=== PATIENT | female | born 1960 | race Hispanic/Latino ===

== ENCOUNTER 2021-09-12 08:07 | Outpatient (CLI) | payer OTHER, SELFPAY ==
--- NOTE | ~2021-09-12 | MM_ITS ---
EXAMINATION: MM screening mik BI w jaylyn HISTORY: Screening TECHNIQUE: Craniocaudal and mediolateral oblique 3-D tomosynthesis images were obtained and synthetic 2-D images were generated. CAD analysis was submitted and interpreted. COMPARISON: No prior mammogram is available for comparison at this institution. BREAST PARENCHYMAL COMPOSITION: There are scattered areas of fibroglandular density. FINDINGS: There is bilateral breast asymmetry with possible architectural distortion in the periareol ar location of both breasts. No discrete mass or suspicious cluster of calcifications. IMPRESSION: 1. Bilateral breast asymmetries/architectural distortion in the periareolar location of both breasts. 2. Additional mammographic views and possible breast ultrasound are recommended. BI-RADS Category 0: Incomplete: Needs additional imaging evaluation. Reviewed, dictated and finalized at location A. BAG ASSEMBLER IMPRESSION: 1. Bilateral breast asymmetries/architectural distortion in the periareolar loc ation of both breasts. 2. Additional mammographic views and possible breast ultrasound are recommended . BI-RADS Category 0: Incomplete: Needs additional imaging evaluation.
== END 2021-09-12 08:08 | disposition home or self-care (01) ==
PROVIDERS: PCP Internal Medicine Gastroenterology; Visit Provider Internal Medicine Gastroenterology
DX: Z12.31 Encounter for screening mammogram for malignant neoplasm of breast (principal); R92.8 Other abnormal and inconclusive findings on diagnostic imaging of breast
CPT/HCPCS: 77063; 77067

== ENCOUNTER 2022-07-17 13:26 | Outpatient (CLI) | payer OTHER, SELFPAY ==
--- NOTE | ~2022-07-17 | DEXA_ITS ---
Bone Density Report Name: TR PATEL I Age: 61 Sex: Female Ethnicity: White Date of : 1960 Indication: postmenopausal; screening for osteoporosis; hysterectomy; Referring Provider: CHIKANOE Study: Bone densitometry was performed. Exam Date: July 17, 2022 Accession number: [id number] Bone Density: Region BMD T-score Z-score Classification AP Spine(L1-L4) 0.759 -2.6 -1.2 Osteoporosis Femoral Neck (Left) 0.802 -0.4 0.8 Normal Total Hip (Left) 0.896 -0.4 0.5 Normal Femoral Neck (Right) 0.819 -0.3 1.0 Normal Total Hip (Right) 0.852 -0.7 0.2 Normal Total Hip Mean 0.874 -0.6 0.4 Normal World Health Organization criteria for BMD impression classify patients as: Normal (T-score at or above -1.0), Osteopenia (T-score between -1.0 and -2.5), or Osteoporosis (T-score at or below -2.5). 10-year Fracture Risk: FRAX not reported because: Some T-score for Spine Total or Hip Total or Femoral Neck at or below -2.5 Clinical Information Provided by Patient: Has used the following medications: Vitamin D, Calcium Has the following medical conditions: Hysterectomy Patient maximum height was 61.75 Menopause Age: 55 No regular weight bearing exercise Drinks caffeinated beverages Onset of menses at age 16 Number of children 3 Impression: The patient has osteoporosis, based on the Total Spine T-score. Discussion: INCREASED RISK OF FRACTURE. BONE DENSITY IS UNDESIRABLY LOW AT ONE OR MORE SKELETAL SITES, CONSISTENT WITH POSTMENOPAUSAL OSTEOPOROSIS. This patient's lowest T-score meets the World Health Organization's (WHO) criteria for osteoporosis at one or more sites (T-score -2.5 or below). In untreated patients, the risk of osteoporotic fracture increases approximately two-fold for each 1.0 SD decrease in T-score. Low bone density is not the only risk factor for fracture; also consider factors such as patient's age, frailty or poor health, risk of falling, risk of injury, previous osteoporotic fracture, family history of osteoporosis, cigarette smoking, low body weight, etc. Not everyone with low bone mineral density has osteoporosis; osteomalacia and other metabolic bone disorders should also be considered. Patients who have osteoporosis should be evaluated for specific diseases and conditions (secondary causes) that may cause or contribute to bone loss. The [place] Association of Clinical Endocrinologists (AACE) and National Osteoporosis Foundation (NOF) recommend pharmacologic intervention for all postmenopausal women whose T-score is in this range. The patient should follow a healthful lifestyle (good nutrition with adequate calcium and vitamin D, and appropriate weight-bearing exercise). Follow-Up: Consider a repeat BMD and Vertebral Fracture Assessment (VFA) exam in 2 years or soon
== END 2022-07-17 13:27 | disposition home or self-care (01) ==
LOC: ANHIMG 13:40
PROVIDERS: PCP Internal Medicine Gastroenterology; Visit Provider Internal Medicine Gastroenterology
DX: Z78.0 Asymptomatic menopausal state (principal); M81.0 Age-related osteoporosis without current pathological fracture
CPT/HCPCS: 77080

== ENCOUNTER 2023-10-15 18:05 | Emergency (ER) | payer SELFPAY ==
--- NOTE | ~2023-10-15 | XR_ITS ---
EXAMINATION: XR ankle LT min 3V DATE: 10/15/2023 18:50 INDICATION: Left ankle pain. TECHNIQUE: 4 views of left ankle were obtained. COMPARISON: Left ankle radiographs 12/06/15 FINDINGS: Bone alignment is normal. No fracture. Joint spaces are normal. There is ankle soft tissue swelling. IMPRESSION: 1. No fracture. Reviewed, dictated and finalized at location E. AND PRINT MACHINE OPERATOR IMPRESSION: 1. No fracture.
--- NOTE | ~2023-10-15 | US_ITS ---
EXAMINATION: US venous doppler [facility] DATE: 10/15/2023 19:40 INDICATION: Left lower limb pain and swelling. TECHNIQUE: Grayscale ultrasound images without and with compression and Doppler ultrasound images of the left lower extremity veins were obtained. COMPARISON: None. FINDINGS: The visualized portions of left common femoral vein, profunda (deep) femoral vein, femoral vein, popl iteal vein, peroneal veins, posterior tibial veins, and greater saphenous vein outflow are patent. IMPRESSION: 1. No deep venous thrombosis. Reviewed, dictated and finalized at location E. INSERTER
--- NOTE | ~2023-10-15 | XR_ITS ---
EXAMINATION: XR knee LT 3V DATE: 10/15/2023 18:50 INDICATION: Left knee pain. TECHNIQUE: 3 views of left knee were obtained. COMPARISON: None. FINDINGS: Bone alignment is normal. No fracture. There is mild tricompartmental osteoarthritis. No kn ee joint effusion. IMPRESSION: 1. Mild left knee osteoarthritis. Reviewed, dictated and finalized at location E. UCTION SUPERVISOR OFF SHIFT
[2023-10-15 18:18] VITALS: BP 141/56; PULSE 88; RESP 17; TEMP 36.4; O2SAT 100
--- NOTE | 2023-10-15 18:25 | ED.GENADULT ---
HPI - General Adult General Chief complaint: Extremity Problem,Nontraumatic <Luther Thomas PA-C - Last Filed: 10/15/23 18:26> Stated complaint: knee pain <Luther Thomas PA-C - Last Filed: 10/15/23 18:26> Time Seen by Provider: 10/15/23 18:29 <Luther Thomas PA-C - Last Filed: 10/15/23 18:26> Focused HPI: This is a 62-year-old female who presents to the ED with chief complaint of left knee and left ankle pain for the past 6 months. Reports today it was a lot worse. 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 She was scheduled for head doctor's appointment in a couple of weeks. She has been taking ibuprofen 200 mg daily. Denies any injury. Denies any history of blood clot or significant swelling. GENERAL: Well-appearing, well-nourished, and in no acute distress. HEAD: Normocephalic, atraumatic. CHEST: Clear to auscultation. No respiratory distress. HEART: Regular rate and rhythm. NEURO: Alert and oriented x3. Patient screened in triage and initial orders placed. Additional care and disposition to be based upon diagnostic testing and treatment. <Luther Thomas PA-C - Last Filed: 10/15/23 18:26> Source: patient <Fernanda Astudillo MD - Last Filed: 10/15/23 22:51> Mode of arrival: ambulatory <Fernanda Astudillo MD - Last Filed: 10/15/23 22:51> Limitations: language barrier (daughter serves as crime specialist ) <Fernanda Astudillo MD - Last Filed: 10/15/23 22:51> History of Present Illness HPI narrative: This is a 62-year-old female who presents with left knee pain for the past 2-6 months but particularly worse over the past 2 weeks. She has also had swelling of her left ankle intermittently and her midfoot. She does note a popping sensation. No shortness of breath. No paresthesias. 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 She fell in the house 6 months ago but did not seek medical care at that time; no interval trauma. She will note taht sometimes the swelling in her foot is significant enough that it is difficult to put her foot into. <Fernanda Astudillo MD - Last Filed: 10/15/23 22:51> Related Data Allergies/adverse reactions: Allergies Allergy/AdvReac Type Severity Reaction Status Date / Time No Known Allergies Allergy Verified 10/15/23 18:06 <Luther Thomas PA-C - Last Filed: 10/15/23 18:26> [facility] Past Medical History Medical History: Medical History (Updated 10/15/23 @ 20:54 by Fernanda Astudillo MD) Diabetes mellitus <Luther Thomas PA-C - Last Filed: 10/15/23 18:26> Social History Social History: Social History (Updated 10/15/23 @ 21:29 by Fernanda Astudillo MD) Social History: Has a daughter Occupation/Education: occupation Additional occupation/education comments: 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 HEAD: Normocephalic, atraumatic. EYES: Non injected, non icteric ENT: Nares clear, no rhinorrhea or epistaxis. NECK: Supple. CHEST: No respiratory distress. HEART: Regular rate and rhythm. ABDOMEN: Soft, nondistended. EXTREMITIES: Normal range of motion with 5/5 strenght with ankle dorsiflexion/plantarflexion/eversion/inversion, knee flexion/extension. No pedal edema/tibial edema. Mild left knee effusion without overlying skin changes/warmth. No TTP of ankle joint or knee joint. Warm and well perfused. SKIN: Warm, dry, no rash. NEURO: No focal deficits. Alert and oriented x3. Sensation intact to touch throughout leg. PSYCH: Normal mood and affect. <Fernanda Astudillo MD - Last Filed: 10/15/23 22:51> Course Vital Signs Vital signs: Vital Signs Temperature 97.6 F 10/15/23 18:18 Pulse Rate 88 10/15/23 18:18 Respiratory Rate 17 03/08/24 18:18 Blood Pressure 141/56 H 10/15/23 18:18 Pulse Oximetry 100 10/15/23 18:18 Oxygen De
[2023-10-15] MEDS: KETOROLAC 30 MG/ML VIAL (*BKC) IM (18:32)
[2023-10-15] MEDS: ACETAMINOPHEN 500 MG TABLET 1000 MG PO (20:53)
[2023-10-15 21:10] VITALS: BP 136/68; PULSE 82; RESP 20; TEMP 37; O2SAT 99
== END 2023-10-15 21:13 | disposition home or self-care (01) ==
PROVIDERS: Emergency Provider Student in an Organized Health Care Education/Training Program; PCP Internal Medicine Gastroenterology
DX: M25.562 Pain in left knee (principal); G89.29 Other chronic pain; M17.12 Unilateral primary osteoarthritis, left knee; M79.672 Pain in left foot; E11.9 Type 2 diabetes mellitus without complications
CPT/HCPCS: 73562; 73610; 93971; 96372; 99284; A9270; J1885

== ENCOUNTER 2024-06-16 15:05 | Outpatient (CLI) | payer OTHER, SELFPAY ==
--- NOTE | ~2024-06-16 | US_ITS ---
Pelvic ultrasound. Clinical History: Abnormal WOODYARD CRANE OPERATOR exam Technique: Realtime transabdominal and transvaginal scanning of the pelvis was performed. Color flow Doppler and Doppler spectral analysis were performed. Findings: The uterus is anteverted, and measures 6.2 x 2.7 x 4.4 cm. The endometrial stripe has a th ickness of 7 mm. No focal mass is identified. Neither ovary seen. No adnexal mass seen. There is no evidence of free fluid in the cul de sac. Impression: No significant abnormality seen. Neither ovary visualized. Reviewed, dictated and finalized at location . GE CLUB MANAGER Impression: No significant abnormality seen. Neither ovary visualized.
== END 2024-06-16 15:06 | disposition home or self-care (01) ==
PROVIDERS: PCP Internal Medicine Gastroenterology; Visit Provider Emergency Medicine
DX: Z01.411 Encounter for gynecological examination (general) (routine) with abnormal findings (principal)
CPT/HCPCS: 76830; 76856

== ENCOUNTER 2025-06-11 09:39 | Outpatient (CLI) | payer OTHER, SELFPAY ==
--- OUTSIDE RECORDS SUMMARY | 2012-07-18 | XMS_ITS | Encounter Summary ---
Author Organization [facility] Healthcare Address [address] [place] [address] Care Team Providers Care Vp Director Of Creative Strategy Name Role Phone Unavailable Primary Care Provider Unavailabl e Reason for Visit * Diagnostic Imaging (Routine) - Pending Review Specialty Diagnoses / Procedures Referred By Sherwin fitzgerald Referred To Contact Procedures Breast Imaging US Outside Reference Indiana Kaufman, LAURA [address] [address] Phone: tel: fax: Referral ID Status Reason Start Date Expiration Date V isits Requested Visits Authorized [id number] Pending Review 09/07/2024 10/07/2025 1 1 Encounter Details Date Type Department Care Team (Late st Contact Info) Description 07/18/2012 Hospital Encounter [facility] [address] [place] [id number] Social History Tobacco Use Types Packs/Day Years Used Date Smoking Tobacco: Never Smokeless Tobacco: Never Comments Unknown Sex and Gender Information Value Date Recorded Sex Assigned at Not on file Legal Sex Female 12:35 AM PRIVATE CLIENT ADVISOR Gender Identity Not on file Sexual Orientation Not on file documented as of this encounter Plan of Treatment Not on file documented as of this encounter Procedures Procedure Name Priority Date/Time Associated Diagnosis Comments BREAST IMAGING US OUTSIDE REFERENCE Routine 07/18/2012 12:00 AM PRIVATE CLIENT ADVISOR documented in this encounter Results * Breast Imaging US Outside Reference (07/18/2012 12:00 AM PRIVATE CLIENT ADVISOR) Impressions RAD_MAMMO_[facility] - 09/07/2024 8:55 PM PRIVATE CLIENT ADVISOR These images are for Reference purposes only and have not been reviewed by [facility]. There will be no report generated by a [facility]iologist. Narrative RAD_MAMMO_[facility] - 09/07/2024 8:55 PM PRIVATE CLIENT ADVISOR EXAMINATION: Images For Reference Purposes Only us Indiana Kaufman NP IMG MAMMO PROCEDURES Fi nal Result RAD_MAMMO_[facility] documented in this encounter Visit Diagnoses Not on filedocumented in this encounter
--- OUTSIDE RECORDS SUMMARY | 2012-07-18 00:05 | XMS_ITS | Encounter Summary ---
Author Organization [facility] Healthcare Address [address] [place] [address] Care Team Providers Care Chemistry Professor Name Role Phone Unavailable Primary Care Provider Unavailabl e Reason for Visit * Diagnostic Imaging (Routine) - Pending Review Specialty Diagnoses / Procedures Referred By Sherwin fitzgerald Referred To Contact Procedures Breast Imaging Diagnostic Outside Reference Indiana Kaufman, LAURA [address] [address] Phone: tel: fax: Referral ID Status Reason Start Date Expiration Date V isits Requested Visits Authorized [id number] Pending Review 09/07/2024 10/07/2025 1 1 Encounter Details Date Type Department Care Team (Late st Contact Info) Description 07/18/2012 12:05 AM EYE GLASS FRAME POLISHER Hospital En[facility] [address] [place] [id number] Social History Tobacco Use Types Packs/Day Years Used Date Smoking Tobacco: Never Smokeless Tobacco: Never Comments Unknown Sex and Gender Information Value Date Recorded Sex Assigned at Not on file Legal Sex Female 12:35 AM EYE GLASS FRAME POLISHER Gender Identity Not on file Sexual Orientation Not on file documented as of this encounter Plan of Treatment Not on file documented as of this encounter Procedures Procedure Name Priority Date/Time Associated Diagnosis Comments BREAST IMAGING MG DIAGNOSTIC OUTSIDE REFERENCE Routine 07/18/2012 12:05 AM EYE GLASS FRAME POLISHER documented in this encounter Results * Breast Imaging Diagnostic Outside Reference (07/18/2012 12:05 AM EYE GLASS FRAME POLISHER) Impressions RAD_MAMMO_[facility] - 09/07/2024 9:01 PM EYE GLASS FRAME POLISHER These images are for Reference purposes only and have not been reviewed by [facility]. There will be no report generated by a [facility] Radiologist. Narrative RAD_MAMMO_[facility] - 09/07/2024 9:01 PM EYE GLASS FRAME POLISHER EXAMINATION: Images For Reference Purposes Only us Indiana Kaufman NP IMG MAMMO PROCEDURES Fi nal Result RAD_MAMMO[facility] documented in this encounter Visit Diagnoses Not on filedocumented in this encounter
--- OUTSIDE RECORDS SUMMARY | 2013-11-07 23:00 | XMS_ITS | Encounter Summary ---
Author Organization [facility] Healthcare Address [address] [place] [address] Care Team Providers Care Event Services Manager Name Role Phone Unavailable Primary Care Provider Unavailabl e Reason for Visit * Diagnostic Imaging (Routine) - Pending Review Specialty Diagnoses / Procedures Referred By Sherwin fitzgerald Referred To Contact Procedures Breast Imaging Diagnostic Outside Reference Indiana Kaufman, LAURA [address] [address] Phone: tel: fax: Referral ID Status Reason Start Date Expiration Date V isits Requested Visits Authorized [id number] Pending Review 09/07/2024 10/07/2025 1 1 Encounter Details Date Type Department Care Team (Late st Contact Info) Description 11/08/2013 Hospital Encounter [facility] [address] [place] [phone] Social History Tobacco Use Types Packs/Day Years Used Date Smoking Tobacco: Never Smokeless Tobacco: Never Comments Unknown Sex and Gender Information Value Date Recorded Sex Assigned at Not on file Legal Sex Female 12:35 AM PLAYERS ASSISTANT Gender Identity Not on file Sexual Orientation Not on file documented as of this encounter Plan of Treatment Not on file documented as of this encounter Procedures Procedure Name Priority Date/Time Associated Diagnosis Comments BREAST IMAGING MG DIAGNOSTIC OUTSIDE REFERENCE Routine 11/08/2013 12:00 AM CDT documented in this encounter Results * Breast Imaging Diagnostic Outside Reference (11/08/2013 12:00 AM CDT) Impressions RAD_MAMMO_[facility] - 09/07/2024 8:54 PM PLAYERS ASSISTANT These images are for Reference purposes only and have not been reviewed by [facility]. There will be no report generated by a [facility] Radiologist. Narrative RAD_MAMMO_[facility] - 09/07/2024 8:54 PM PLAYERS ASSISTANT EXAMINATION: Images For Reference Purposes Only us Indiana Kaufman NP IMG MAMMO PROCEDURES Fi nal Result RAD_MAMMO[facility] documented in this encounter Visit Diagnoses Not on filedocumented in this encounter
--- OUTSIDE RECORDS SUMMARY | 2015-08-12 | XMS_ITS | Encounter Summary ---
Author Organization [facility] Healthcare Address [address] [place] [address] Care Team Providers Care Assembler Garment Form Name Role Phone Unavailable Primary Care Provider Unavailabl e Reason for Visit * Diagnostic Imaging (Routine) - Pending Review Specialty Diagnoses / Procedures Referred By Sherwin fitzgerald Referred To Contact Procedures Breast Imaging Diagnostic Outside Reference Indiana Kaufman, LAURA [address] [address] Phone: tel: fax: Referral ID Status Reason Start Date Expiration Date V isits Requested Visits Authorized [id number] Pending Review 09/07/2024 10/07/2025 1 1 Encounter Details Date Type Department Care Team (Late st Contact Info) Description 08/12/2015 Hospital Encounter [facility] [address] [place] [phone] Social History Tobacco Use Types Packs/Day Years Used Date Smoking Tobacco: Never Smokeless Tobacco: Never Comments Unknown Sex and Gender Information Value Date Recorded Sex Assigned at Not on file Legal Sex Female 12:35 AM PLANT TECHNICAL SPECIALIST Gender Identity Not on file Sexual Orientation Not on file documented as of this encounter Plan of Treatment Not on file documented as of this encounter Procedures Procedure Name Priority Date/Time Associated Diagnosis Comments BREAST IMAGING MG DIAGNOSTIC OUTSIDE REFERENCE Routine 08/12/2015 12:00 AM PLANT TECHNICAL SPECIALIST documented in this encounter Results * Breast Imaging Diagnostic Outside Reference (08/12/2015 12:00 AM PLANT TECHNICAL SPECIALIST) Impressions RAD_MAMMO_[facility] - 09/07/2024 8:54 PM PLANT TECHNICAL SPECIALIST These images are for Reference purposes only and have not been reviewed by [facility]. There will be no report generated by a [facility] Radiologist. Narrative RAD_MAMMO_[facility] - 09/07/2024 8:54 PM PLANT TECHNICAL SPECIALIST EXAMINATION: Images For Reference Purposes Only us Indiana Kaufman NP IMG MAMMO PROCEDURES Fi nal Result RAD_MAMMO_[facility] documented in this encounter Visit Diagnoses Not on filedocumented in this encounter
--- OUTSIDE RECORDS SUMMARY | 2017-01-29 23:00 | XMS_ITS | Encounter Summary ---
Author Organization [facility] Healthcare Address [address] [place] [address] Care Team Providers Care Senior Treasury Consultant Name Role Phone Unavailable Primary Care Provider Unavailabl e Reason for Visit * Diagnostic Imaging (Routine) - Pending Review Specialty Diagnoses / Procedures Referred By Sherwin fitzgerald Referred To Contact Procedures Breast Imaging Screening Outside Reference Indiana Kaufman, LAURA [address] [address] Phone: tel: fax: Referral ID Status Reason Start Date Expiration Date V isits Requested Visits Authorized [id number] Pending Review 09/07/2024 10/07/2025 1 1 Encounter Details Date Type Department Care Team (Late st Contact Info) Description 01/30/2017 Hospital Encounter [facility] [address] [place] [phone] Social History Tobacco Use Types Packs/Day Years Used Date Smoking Tobacco: Never Smokeless Tobacco: Never Comments Unknown Sex and Gender Information Value Date Recorded Sex Assigned at Not on file Legal Sex Female 12:35 AM BANKER MASON Gender Identity Not on file Sexual Orientation Not on file documented as of this encounter Plan of Treatment Not on file documented as of this encounter Procedures Procedure Name Priority Date/Time Associated Diagnosis Comments BREAST IMAGING MG SCREENING OUTSIDE REFERENCE Routine 01/30/2017 12:00 AM CDT documented in this encounter Results * Breast Imaging Screening Outside Reference (01/30/2017 12:00 AM CDT) Impressions RAD_MAMMO_[facility] - 09/07/2024 8:54 PM BANKER MASON These images are for Reference purposes only and have not been reviewed by [facility]. There will be no report generated by a [facility] Radiologist. Narrative RAD_MAMMO_[facility] - 09/07/2024 8:54 PM BANKER MASON EXAMINATION: Images For Reference Purposes Only us Indiana Kaufman NP IMG MAMMO PROCEDURES Fi nal Result RAD_MAMMO[facility] documented in this encounter Visit Diagnoses Not on filedocumented in this encounter
--- OUTSIDE RECORDS SUMMARY | 2018-07-11 | XMS_ITS | Encounter Summary ---
Author Organization [facility] Healthcare Address [address] [place] [address] Care Team Providers Care Nut Process Helper Name Role Phone Unavailable Primary Care Provider Unavailabl e Reason for Visit * Diagnostic Imaging (Routine) - Pending Review Specialty Diagnoses / Procedures Referred By Sherwin fitzgerald Referred To Contact Procedures Breast Imaging Screening Outside Reference Indiana Kaufman, LAURA [address] [address] Phone: tel: fax: Referral ID Status Reason Start Date Expiration Date V isits Requested Visits Authorized [id number] Pending Review 09/07/2024 10/07/2025 1 1 Encounter Details Date Type Department Care Team (Late st Contact Info) Description 07/11/2018 Hospital Encounter [facility] [address] [place] [phone] Social History Tobacco Use Types Packs/Day Years Used Date Smoking Tobacco: Never Smokeless Tobacco: Never Comments Unknown Sex and Gender Information Value Date Recorded Sex Assigned at Not on file Legal Sex Female 12:35 AM BINDERY SUPERVISOR Gender Identity Not on file Sexual Orientation Not on file documented as of this encounter Plan of Treatment Not on file documented as of this encounter Procedures Procedure Name Priority Date/Time Associated Diagnosis Comments BREAST IMAGING MG SCREENING OUTSIDE REFERENCE Routine 07/11/2018 12:00 AM BINDERY SUPERVISOR documented in this encounter Results * Breast Imaging Screening Outside Reference (07/11/2018 12:00 AM BINDERY SUPERVISOR) Impressions RAD_MAMMO_[facility] - 09/07/2024 8:54 PM BINDERY SUPERVISOR These images are for Reference purposes only and have not been reviewed by [facility]. There will be no report generated by a [facility] Radiologist. Narrative RAD_MAMMO_[facility] - 09/07/2024 8:54 PM BINDERY SUPERVISOR EXAMINATION: Images For Reference Purposes Only us [place] Kaufman NP IMG MAMMO PROCEDURES Fi nal Result RAD_MAMMO[facility] documented in this encounter Visit Diagnoses Not on filedocumented in this encounter
--- NOTE | ~2025-06-11 | XR_ITS ---
EXAMINATION: XR knee LT min 4V, 06/11/2025 10:00 PROGRAM SCHEDULER HISTORY: PAIN AND SWELLING IN LEFT KNEE, NKI COMPARISON: No comparisons available. Findings: No acute fracture or malalignment. Moderate tricompartmental degenerative changes, small effusion Soft tissues unremarkable. Impression: No acute fracture or malalignment. Reviewed, dictated and finalized at location P. RAM SCHEDULER Impression: No acute fracture or malalignment.
--- OUTSIDE RECORDS SUMMARY | 2025-06-11 10:29 | XMS_ITS | Clinical Summary ---
Author Organization [facility] Address [address] [place] [id number] Care Team Providers Care Linux Server Engineer Name Role Phone William Hammond MD Primary Care Provider [phone] Allergies No known active allergies Medications hydrochlorothiazid e 25 MG tablet 11/07/2018 Acti ve metFORMIN 1000 MG tablet 11/07/2018 Active lisinopril 40 MG tablet 11/07/2018 Active Family History Medical History Relation Comments Diabetes Father Hypertension Father Diabetes Mother Hypertension Mother Relation Status Comments Father Mother Social History Tobacco Use Types Packs/Day Years Used Date Smoking Tobacco: Never Smokeless Tobacco: Never Alcohol Use Standard Drinks/Week Comments Yes 0 (1 standard drink = 0.6 oz pur e alcohol) rare Comments No Sex and Gender Information Value Date Recorded Sex Assigned at Not on file Legal Sex Female 5:46 PM CDT Gender Identity Not on file Sexual Orientation Not on file Last Filed Vital Signs Vital Sign Reading Time Taken Comments Blood Pressure 154/94 11/25/2018 8:21 AM CDT Pulse 86 11/25/2018 8:21 AM CDT Temperature 36.3 C (97.4 F) 11/25/2018 8:21 AM CDT Respiratory Rate 20 11/25/2018 8:21 AM CDT Oxygen Saturation 99% 11/25/2018 8:21 AM CDT Inhaled Oxygen Concentration - - Weight 84.8 kg (187 lb) 11/25/2018 8:21 AM CDT Height 157.5 cm (5' 2) 11/25/2018 8:21 AM CDT Body Mass Index 34.2 11/25/2018 8:21 AM CDT Plan of Treatment Health Maintenance Due Date Last Done Comments Cervical Cancer Screening Pa p Smear (Age 30 to 64) Every 3 Years 1962 Colorectal Cancer Screening Colonoscopy (10 Years) 1962 Annual Physical 1965 Hepatitis C 1980 DTaP, Tdap and Td Vaccines ( 1 - Tdap) 1981 Cervical Cancer Screening Hira lindsey with HPV Testing (Age 30 to 64) Every 5 Years 1992 Cervical Cancer Screening with HPV 1992 Mammogram Screening 2002 Pneumococcal Vaccine: 50+ Ye ars (1 of 1 - PCV) 2012 Zoster Vaccines (1 of 2) 2012 COVID-19 Vaccine (1 - 2024-2 6 season) 2025 Influenza Adult (#1) 2025 RSV Immunization or 60+ Years (1 - 1-dose 75+ series) 2037 Hepatitis A Vaccines Aged Out No long er eligible based on patient's age to complete this topic Meningococcal B Vaccine Aged Out No l onger eligible based on patient's age to complete this topic Meningococcal Vaccine Aged Out No delores kathy eligible based on patient's age to complete this topic RSV Immunizations Under 20 Months Aged Out No longer eligible based on patient's age to complete this topic Insurance Care Teams Linux Server Engineer Relationship Specialty Start Date End Date William Hammond MD PCP - General INTERNAL MEDICINE 11/25/18
--- OUTSIDE RECORDS SUMMARY | 2025-06-11 10:29 | XMS_ITS | Clinical Summary ---
Author Organization [address] Address [address] [place] [id number] Care Team Providers Care Faith Doctor Name Role Phone Kamryn Fischer MD Primary Care Provider Allergies No known active allergies Medications lisinopriL (PRINIVIL,ZESTR IL) 40 mg tablet Take 1 tablet (40 mg total) by mouth daily 9 Active lovastatin (MEVACOR) 20 mg tablet Take 1 tablet (20 mg total) by mouth nightly 4 Active hydroCHLOROthia zide (HYDRODIURIL) 25 mg tablet Take 1 tablet (25 mg total) by mouth daily 9 Active meloxicam (MOBIC) 15 mg tablet Take 1 tablet (15 mg total) by mouth daily 5 Active metFORMIN (GLUCOPHAGE) 1,000 mg tablet Take 1 tablet (1,000 mg total) by mouth 2 (two) times a day 9 Active pioglitazone (ACTOS) 15 mg tablet TAKE ONE TABLET BY MOUTH EVERY MORNING FOR DIABETES 4 Active traMADoL (ULTRAM) 50 mg tablet 4 Active naproxen (NAPROSYN) 500 mg tablet Take 1 tablet (500 mg total) by mouth Active FeroSuL 325 mg (65 mg iron) tablet Take 1 tablet (325 mg total) by mouth daily Active glimepiride (AMARYL) 2 mg tablet Take 1 tablet (2 mg total) by mouth daily Active ergocalciferol (VITAMIN D) 50,000 unit capsule TAKE 1 CAPSULE BY MOUTH ONCE A WEEK DIRECTED Active Invokana 100 mg tablet TAKE ONE TABLET BY MOUTH EVERY MORNING FOR DIABETES Active betamethasone (Celestone Soluspan) 6 mg/mL injection Take 3 mL by injection route. 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, bilateral 11/13/2024 Anemia 11/13/2024 Chest pain 11/13/2024 Essential hypertension 11/13/2024 Dyspnea 11/13/2024 Hyperlipidemia 11/13/2024 Menorrhagia 11/13/2024 Obesity 11/13/2024 Peripheral edema 11/13/2024 Pulmonary embolism 11/13/2024 Type 2 diabetes mellitus 11/13/2024 Mass of left breast 06/07/2024 Arthralgia of left ankle 11/02/2023 Osteoporosis 07/30/2022 Low vitamin D level 05/28/2022 Diverticular disease 07/01/2021 Vitamin D deficiency 07/01/2021 Immunizations Immunization Administration Dates Next Due Influenza, Quadrivalent, Split, Intramuscular ,07/19/2015 Influenza, Trivalent, IM (MDV) 08/03/2014 Pneumococcal Polysaccharide PPV23 02/05/2015 Tdap 11/30/2013 Surgical History Surgery Date Site/Laterality Comments COLONOSCOPY Medical History Medical History Date Comments Hypertension Arthritis Family History Medical History Relation Name Comments Diabetes Father Diabetes Mother Hypertension Mother Relation Name Status Comments Father Mother Alive Social History Tobacco Use Types Packs/Day Years Used Date Smoking Tobacco: Never Smokeless Tobacco: Never Tobacco Cessation:Counseling Given: Not Answered Comments Unknown Sex and Gender Information Value Date Recorded Sex Assigned at Not on file Legal Sex Female 12:35 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 Gender Identity Not on file Sexual Orientation Not on file Last Filed Vital Signs Vital Sign Reading Time Taken Comments Blood Pressure 121/75 11/16/2024 9:01 AM CDT Pulse 79 11/16/2024 9:01 AM CDT Temperature 36.9 C (98.5 F) 07/06/2016 7:10 PM HEALTH SCIENCE WRITER Respiratory Rate 18 11/16/2024 9:01 AM CDT Oxygen Saturation 99% 11/16/2024 9:01 AM CDT Inhaled Oxygen Concentration - - Weight 80.3 kg (177 lb) 11/16/2024 9:01 AM CDT Height 157.5 cm (5' 2.01) 11/16/2024 9:01 AM CD T Body Mass Index 32.37 11/16/2024 9:01 AM CDT Plan of Treatment Health Maintenance Due Date Last Done Comments Albumin Creatinine Ratio, Urine 1962 Breast Cancer Screening-Mammogram 1962 Cervical Cancer Screening 1962 Colon Cancer Screening-Colonoscopy 1962 Depression Screening 1962 Hemoglobin A1C 1962 Hepatitis C Screening 1962 eGFR 1962 Dilated Eye Exam 1962 Foot Exam 1962 Hepatitis B Screening 1980 Regular Well Visit/Exam 18-64 1980 Zoster Vaccine (1 of 2) 2012 Pneumococcal vaccine <65 (2 of 2 - PCV) 02/06/2016 02/05/2015 Lipid Panel 03/06/2016 03/06/2015 DTaP/Tdap/Td Vaccine (2 - Td or Tdap) 12/01/2023 Covid-19 Vaccine (3 - season) 2025, 11/11/2020 Influenza Vaccine (#1) 2025 6, 07/19/2015, 08/03/2014 Procedures Procedure Name Priority Date/Time Associated Diagnosis Comments TNI WITH LIPID PANEL Routine 03/06/2015 6:54 PM CDT from Last 3 Months or Most Recently Relevant to Health Maintenance Results * (ABNORMAL) TNI with LIPID PANEL (03/06/2015 6:54 PM CDT) Troponin I < 0.300 0.000 - 0.300 ng/mL 03/06/2015 8:49 PM CDT [employer] HISTORICAL RESULTS Comment: Reference using JANNA Chemiluminescence Negative: Repeat in 4-6 hours as indicated. Triglycerides 106 0 - 199 mg/dL 03/06/2015 8:52 PM CDT [employer] HISTORICAL RESULTS Comment:12 hr pc highly juvenal mmended for Triglyceride Cholesterol 191 0 - 199 mg/dL Comment: Borderline: 200-239 High Risk: >239 HDL Cholesterol 65(H) 40 - 60 mg/dL Comment: Major Risk < 40 mg/dL Moderate Risk 40-60 mg/dL Negative Risk > 60 mg/dL LDL Cholesterol, Calc 105 0 - 130 mg/dL Comment:High Risk > 159 mg/d L Cholesterol/HDL Ratio 2.9 Comment: Cholesterol / HDL Ratio 3.5:1 or less is desirable. Cholesterol / HDL Ratio greater than 5:1 is considered higher risk for developing heart disease. 03/06/2015 6:54 PM CDT 03/06/2015 8:21 PM CDT Narrative [facility] HISTORICAL RESULTS - 03/06/2015 8:52 PM CDT William Harrell MD LAB BLOOD ORDERABLES Final Re sult [facility] HISTORICAL RESULTS from Last 3 Months or Most Recently Relevant to Health Maintenance Insurance Care Teams Faith Doctor Relationship Specialty Start Date End Date Kamryn Fischer MD [id number] [id number] PCP - General Gastroenterology 08/17/24
== END 2025-06-11 09:40 | disposition home or self-care (01) ==
PROVIDERS: PCP Emergency Medicine; Visit Provider Emergency Medicine
DX: M25.562 Pain in left knee (principal)
CPT/HCPCS: 73564